=== PATIENT | female | born 1965 | race Caucasian/White ===

== ENCOUNTER 2023-05-15 07:05 | Day surgery (SDC) | payer BC ==
[~2023-05-15] VITALS: Ht 162.6 cm; Wt 75.4 kg
[~2023-05-15 07:05] MED LIST: ARMOUR THYROID90 MG PO; COZAAR100 MG PO; PRIL40 PO; PROMETRIUM100 MG PO
[2023-05-15 07:21] VITALS: BP 133/63; PULSE 85; TEMP 97.5
[2023-05-15 10:13] VITALS: BP 110/66; PULSE 81; TEMP 98.6
[2023-05-15 10:30] VITALS: BP 114/70; PULSE 78
[2023-05-15 10:45] VITALS: BP 118/72; PULSE 75
[2023-05-15 11:00] VITALS: BP 116/69; PULSE 74
--- NOTE | 2023-05-15 11:49 | NUR ---
[id number]: PT TO RECOVERY BAY 8 FROM OR S/P RIGHT FOOT HARDWARE REMOVAL SLEEPY, PLACED ON MONITOR, VSS ON RA RECEIVED REPORT AND ASSUMED CARE OF PT FROM STEPHEN AND SUSY SHIELDS TO RIGHT FOOT (JOSIAS WRAP) CDI. ICE AND ELEVATION APPLIED. DENIES COMPLAINT. PT ORIENTED TO ROOM AND PLANNEDD DISPO. FOOD/FLUIDS PROVIDED AND TOLERATED WELL. BROUGHT TO BEDSIDE, ARRIVED WITH CAST BOOT DR BRAVO TO BEDSIDE TO SEE PT/FAMILY PT HAS REMAINED A&O, NAD, VSS ON RA, TOLERATING PO, IS WITHOUT SIGNIFICANT COMPLAINT, WITH SAFE INDEPENDENT TRANSFER/GAIT THRU OUT STAY IV D/C'D. D/C INSTRUCTIONS, ANY FOLLOW UP REVIEWED AND HANDED TO PT. ALL QUESTIONS AND CONCERNS ADDRESSED TO PT SATISFACTION. TAKEN TO EXIT VIA W/C WITH ALL BELONGINGS AND PAPERWORK IN HAND, ASSISTED INTO PASSENGER SEAT OF POV. SPOUSE TO DRIVE HOME.
== END 2023-05-15 11:20 | disposition home or self-care (01) ==
LOC: SDCO 07:05
DX: T84.84XA Pain due to internal orthopedic prosthetic devices, implants and grafts, initial encounter (principal); K21.9 Gastro-esophageal reflux disease without esophagitis; I10 Essential (primary) hypertension; Z79.899 Other long term (current) drug therapy
CPT/HCPCS: J0665; J0690; J2704; J7120